=== PATIENT | male | born 1965 | race Caucasian/White ===

== ENCOUNTER 2023-04-20 16:24 | Inpatient (IN) | payer BC, SELFPAY ==
[2023-04-20] VITALS (11 sets, daily range): BP systolic 138–174; BP diastolic 82–100; BMI 31.9; BMI 29.9
--- NOTE | 2023-04-20 09:04 | ED.GENMED ---
History of Present Illness
General
Chief Complaint: Abdominal Symptoms
Source: patient
Exam Limitations: none
Time Seen by Provider: 04/20/23 08:48
Travel History
Have you had any contact with someone who has COVID-19?: No
Do you have any symptoms of coronavirus? Fever > 100 degrees, chills, cough, shortness of breath, sore throat, loss of taste or smell, muscle aches, or headache?: No
History of Present Illness
History of Present Illness:
58-year-old male presents with 3 days worth of nausea vomiting diarrhea. He had a recent spinal fusion. He has a chronic pain patient. He takes morphine gabapentin and OxyContin daily. He has not been able to take any of his blood pressure
medicine or pain medicine. He also notes a dizzy sensation. He cannot keep anything in or down. He has had loose stools at least 4 times in the past 3 hours. He persist to vomit. He notes mild diffuse abdominal pain. No other complaints at
this time
Past History
Past History
ED Past Medical History: Asthma, HTN, Other (Head injury with Vestibular problem), Other (Chronic low back pain, narcotic dependent) and Other (Kidney stones); Negative Hypercholesterolemia or NIDDM
ED Past Surgical History: Orthopedic (Left rotator cuff, Back surgery X 3) and Other (Stent, Left Orthroscopy, )
Social History
Tobacco: Non-smoker
Alcohol: None
Personal:
Living: with family
Employment: Disabled
Family History
Family History: Other (Noncontributory)
Phy Exam
Physical Exam
Physical Exam:
General: Well-appearing male no acute respiratory distress
HEENT: Normocephalic mucosa dry neck is supple
Heart: Regular rate and rhythm no murmurs
Lungs: Clear to auscultation bilaterally no wheezing
: Soft mildly diffusely tender no guarding or rebound normal bowel sounds
Extremities: No cyanosis or edema
Skin: Warm no rash
Course
Orders/Labs/Results
Orders:
Orders
04/20/23 08:58
STOOL [C difficile Antigen & Toxins] Urgent
JEAN-PAUL Source: Feces/Stool
Specimen Description:
Stool Culture Urgent
JEAN-PAUL Source: Feces/Stool
Specimen Description:
0.9% Sodium Chloride 1000 ml [Nss] 1,000 ml IV BOLUS
HYDROmorphone [Dilaudid] 1 mg IV NOW STA
Ondansetron Injectable [Zofran] 4 mg IV NOW STA
04/20/23 09:02
Complete Blood Count/With Diff Urgent
Comprehensive Metabolic Panel Urgent
Lipase Urgent
04/20/23 12:32
0.9% Sodium Chloride 1000 ml [Nss] 1,000 ml IV BOLUS
HYDROmorphone [Dilaudid] 1 mg IV NOW STA
diazePAM [Valium Injection] 5 mg IV NOW STA
04/20/23 14:53
Norovirus by PCR Urgent
JEAN-PAUL Source: Feces/Stool
Specimen Description:
Stool For WBC Urgent
JEAN-PAUL Source: Feces/Stool
Specimen Description:
04/20/23 14:57
CT Abd/pel Without Iv Or Oral Urgent
Comment:
Reason For Exam: nausea/vomiting/diarrhea
Abnormal Lab Results
04/20/23
09:02
WBC 12.1 H 10^3/uL
(4.8-10.8)
MCH 32.0 H pg
(27.0-31.0)
Abs Immat Gran (auto) 0.1 H 10^3/uL
(0-0.05)
Absolute Neuts (auto) 11.0 H 10^3/uL
(1.4-6.5)
Absolute Lymphs (auto) 0.8 L 10^3/uL
(1.2-3.4)
Neutrophils % 90.2 H %
(42.2-75.2)
Lymphocytes % 6.5 L %
(20.5-51.1)
Glucose 134 H mg/dl
(70-99)
04/20/23 09:02
04/20/23 09:02
Vital Signs
Initial and Last Documented VS:
Initial Vital Signs
Temp Pulse Resp BP Pulse Ox
98.1 F 69 16 174/100 96
04/20/23 08:16 04/20/23 08:16 04/20/23 08:16 04/20/23 08:16 04/20/23 08:16
Last Documented Vital Signs
Temp Pulse Resp BP Pulse Ox
98.1 F 76 20 141/89 99
04/20/23 08:16 04/20/23 14:30 04/20/23 14:30 04/20/23 14:00 04/20/23 14:30
MDM/Problems Addressed
Differential Diagnosis Includes:
Nausea,vomiting, diarrhea, abdominal pain. He also has dizziness which may be related to the volume depletion. He describes a positional dizziness. Will hydrate give Zofran pain medicine and check labs. Stool cultures pending
*Critical Care Note
Total Time (30-74mins, 75-104mins- exclusive of procedures): Not Applicable
Update Note
Update Note:
Patient reevaluated multiple times. Pain and nausea have not improved with multiple rounds of medication. Will have to admit to hospital for intractable nausea.
ED Attending Note
-
Portions of this chart may have been created with voice recognition software.� Occasional wrong word or��sound alike� substitutions may have occurred due to the inherent limitations of voice recognition software.
Discharge Plan
Departure
Patient Disposition: Admit
Date of Disposition: 04/20/23
Time of Disposition: 15:24
Presentation/result/management discussed w/ accepting MD/DO: Hospitalist
Discharge Problem:
Nausea & vomiting
Prescriptions:
No Action
olmesartan 40 mg Tablet
40 mg PO DAILY
oxycodone 10 mg Tablet
10 mg PO Q4H
morphine 15 mg tablet extended release
15 mg PO BID
cyclobenzaprine [Flexeril] 5 mg Tablet
5 mg PO HS
acetaminophen [Tylenol] 325 mg Tablet
650 mg PO BIDPRN PRN (Reason: migraines)
gabapentin 600 mg Tablet
600 mg PO QID
sennosides-docusate sodium [Colace 2-In-1] 8.6-50 mg Tablet
2 tab-cap PO HS
melatonin 5 mg Tablet
5 mg PO HS
Healthy Brain- All Day Focus
1 cap PO DAILY
Medical Marijuana
3 gummy PO DAILYPRN PRN (Reason: anxiety)
Referrals:
Brody Fernández DO [Family Provider] -
Interventions
Interventions:
*Risk Screen - Suicide Last Done: 04/20/23 09:03
*General Assessment Last Done: 04/20/23 09:03
*Neglect/Abuse Screening Last Done: 04/20/23 09:03
ED- Fall Risk Assessment Last Done: 04/20/23 09:03
*ED COVID-19 Vaccine History Last Done: 04/20/23 08:16
CR-Pnaptz-Zjzwelgrjh Assessment Last Done: 04/20/23 09:03
[2023-04-20] MEDS: NSS 1000 IV ×3 (09:13→18:40)
[2023-04-20] MEDS: ZOFRAN 4 MG IV ×2 (09:16→18:39)
[2023-04-20] MEDS: DILAUDID 1 MG IV ×2 (09:16→12:53)
[2023-04-20 09:25] LABS: % Basophils 0.2 % (0-2); % Eosinophils 0.1 % (0-6); % Immature Granulocytes 0.4 % (0-0.5); % Lymphocytes 6.5 % (20.5-51.1); % Monocytes 2.6 % (1.7-9.3); % Neutrophils 90.2 % (42.2-75.2); Absolute Immature Granulocytes 0.1 10^3/uL (0-0.05); Absolute Lymphocytes 0.8 10^3/uL (1.2-3.4); Absolute Monocytes 0.3 10^3/uL (0.1-0.6); Hematocrit 44.2 % (39.0-52.0); Hemoglobin 15.5 g/dL (13.0-18.0); Mean Corp Hgb Conc. 35.1 g/dL (33.0-37.0); Mean Corpuscular Volume 91.3 fL (80.0-94.0); Mean Platelet Volume 10.2 fL (7.4-10.4); Nucleated Red Blood Cells % 0 % (-); Platelet Count 326 10^3/uL (130-400); Red Blood Cell Count 4.84 10^6/uL (4.70-6.10); Red Cell Dist. Width 11.9 % (11.5-14.5); White Blood Cell Count 12.1 10^3/uL (4.8-10.8)
[2023-04-20 09:30] LABS: ALT (SGPT) 28 U/L (0-50); AST (SGOT) 23 U/L (17-59); Albumin 4.9 g/dl (3.5-5.0); Alkaline Phosphatase 96 U/L (38-126); Blood Urea Nitrogen 14 mg/dl (9-20); Calcium 10.2 mg/dl (8.4-10.2); Carbon Dioxide 26 mmol/L (22-30); Chloride 107 mmol/L (98-107); Estimated Creatinine Clearance 112 ml/min; Glucose 134 mg/dl (70-99); Lipase 42 U/L (23-300); Potassium 3.6 mmol/L (3.5-5.1); Sodium 140 mmol/L (135-145); Total Bilirubin 0.9 mg/dl (0.2-1.3); Total Protein 7.6 g/dl (6.3-8.2); eGFR > 60.00
[2023-04-20] MEDS: VALIUM INJECTION 5 MG IV (12:52)
--- NOTE | 2023-04-20 15:47 | HPS.HSE ---
Addendum entered and electronically signed by Catracho Paula MD 04/20/23 16:08:
Diarrhea for 3 days, then nausea and followed by vomiting
Has been having a lot of back issues, is unable to cook for himself and mostly does take out
Pt seen independently and agree with PA note
Lungs clear
CV reg
Abd soft, active BS, diffusely tender
Imp: probable infectious gastroenteritis
chronic back pain
P:check stool cx
CT scan of abd
empiric abx
IVF
Original Note:
Family Physician
-
Family Physician: Brody Fernández
Chief Complaint
-
Nausea/Vomiting/Diarrhea
History of Present Illness
Pt is a 58yo M w/ a PMH of HTN, and Chronic low back pain who is presenting to the ED c/o diarrhea x 3 days. Pt states he began experiencing diarrhea 3 days ago which occurred immediately after eating, he states he experienced 5-6 loose stools each
day. He denies blood in his stools and has not tried anything to improve his symptoms. He admits to nausea which began 2 days ago and began vomiting yesterday evening. He stated he was vomiting every 15 minutes. He states he has not eaten since the
vomiting began and reports dry heaving frequently today. He admits to diffuse abdominal tenderness which began with the onset of these symptoms and admits to dizziness which began yesterday morning. He notes that he has a history of TBI in 2008 and
states he always experiences a low level of dizziness but reports that his symptoms are worse than usual. He denies eating anything that tasted strange or he considered suspicious, and states that when he experiences nausea, he usually drinks a
Boost and the nausea resolves but this time he was unable to keep the drink down. He denies recent antibiotic use, and recent travel. He admits to marijuana use which he states he uses a 5mg edible once daily for anxiety and stress. He states he has
not used this since the vomiting began. He admits to chronic low back pain. He denies fever, chills, or sweats.
Medical History
Past Medical History
Past Medical History: Reports Other
Additional Past Medical History:
Chronic Back Pain
Chronic Opioid Dependence
History of TBI (remote)
Hypertension
Asthma
Past Surgical History: Reports Other
Additional Past Surgical History:
Lumbar Fusion x 2
Nerve Root Stimulator Implantation
Left Shoulder Surgery
Knee Arthroscopy
Social History
Tobacco: Non-smoker
Alcohol: Occasional
Drug: Marijuana (Edible marijuana daily for anxiety)
Family History
Family History: Not pertinent
Allergies / Home Medications
Allergies reflects when Allergies were last updated in [employer].
Home Medications with original date entered in [facility]
Allergy/Medication List:
Allergies
Allergy/AdvReac Type Severity Reaction Status Date / Time
No Known Allergies Allergy Verified 11/30/22 22:27
Home Medications
olmesartan 40 mg tablet 40 mg PO DAILY Blood Pressure 12/01/22
oxycodone 10 mg tablet 10 mg PO Q4H 12/01/22
morphine 15 mg tablet,extended release 15 mg PO BID Pain 12/02/22
Healthy Brain- All Day Focus 1 cap PO DAILY 04/20/23
Medical Marijuana 3 gummy PO DAILYPRN PRN anxiety 04/20/23
acetaminophen 325 mg tablet (Tylenol) 650 mg PO BIDPRN PRN migraines 04/20/23
cyclobenzaprine 5 mg tablet 5 mg PO HS 04/20/23
gabapentin 600 mg tablet 600 mg PO QID 04/20/23
melatonin 5 mg tablet 5 mg PO HS 04/20/23
sennosides 8.6 mg-docusate sodium 50 mg tablet (Colace 2-In-1) 2 tab-cap PO HS 04/20/23
Review of Systems
-
A 12 point ROS was completed and negative except as noted: Yes
Constitutional: Denies Fever or Chills
Respiratory: Denies Cough or Trouble Breathing
Cardiac: Denies Chest Pain or Palpitations
Abdomen/GI: Reports See HPI
Physical Exam
Vital Signs
Vital Signs
Temp Pulse Resp BP Pulse Ox
98.1 F 76 20 141/89 99
04/20/23 08:16 04/20/23 14:30 04/20/23 14:30 04/20/23 14:00 04/20/23 14:30
Physical Exam
General: Comfortable and Conversant
HEENT: NormoCephalic, Anicteric and Atraumatic
Respiratory: Clear and Non Labored Respirations
Cardiac: S1/S2 and Regular Rhythm
GI: Soft and Tender (Mild tenderness bilateral lower quadrants without rebound or guarding)
Musculoskeletal: No Clubbing, No Cyanosis and No Edema
Skin: Warm and Dry
Neuro: Awake, Alert, Oriented and Nonfocal/grossly intact
Laboratory Results
-
04/20/23 09:02
04/20/23 09:02
Laboratory Results
Total Bilirubin 0.9 mg/dl (0.2-1.3) 04/20/23 09:02
AST 23 U/L (17-59) 04/20/23 09:02
ALT 28 U/L (0-50) 04/20/23 09:02
Alkaline Phosphatase 96 U/L (38-126) 04/20/23 09:02
Lipase 42 U/L (23-300) 04/20/23 09:02
Data Reviewed
-
Lab Data: Labs Reviewed by me
Impression/Plan
-
Intractable Nausea/Vomiting/Diarrhea suspect Gastroenteritis possibly food-borne
-Check stool WBC, stool cultures, and norovirus
-Start Levaquin and Flagyl
-Allow clears liquids and Advance as tolerated
-Check Abd/Pelvis CT
Chronic Back Pain with Chronic Opioid Dependence
-Continue Morphine ER
-Continue Gabapentin and Flexeril
-Add Dilaudid IV for breakthrough pain until able to resume oral oxycodone
Essential Hypertension
-Continue olmesartan with hold parameters
DVT proph: SCDs
Code Status: Full Code
[2023-04-20] MEDS: FLAGYL 500 MG 100 IV (18:40)
[2023-04-20] MEDS: DILAUDID 0.5 MG IV (18:40)
[2023-04-20] MEDS: LEVAQUIN 100 IV (20:12)
[2023-04-20] MEDS: MS CONTIN (EXTENDED RELEASE) 15 MG PO (20:13)
[2023-04-20] MEDS: MELATONIN 5 MG PO (21:43)
[2023-04-20] MEDS: NEURONTIN 600 MG PO (21:43)
[2023-04-20] MEDS: FLEXERIL 5 MG PO (21:43)
[2023-04-21] MEDS: DILAUDID 0.5 MG IV ×5 (03:28→22:00)
[2023-04-21] MEDS: FLAGYL 500 MG 100 IV ×3 (03:28→18:58)
[2023-04-21 06:00] VITALS: BMI 31.6
[2023-04-21] MEDS: NSS 1000 IV ×2 (06:55→15:51)
[2023-04-21 07:00] VITALS: BP 152/94
[2023-04-21 07:09] LABS: Hematocrit 40.1 % (39.0-52.0); Hemoglobin 13.7 g/dL (13.0-18.0); Mean Corp Hgb Conc. 34.2 g/dL (33.0-37.0); Mean Corpuscular Hgb 32.2 pg (27.0-31.0); Mean Corpuscular Volume 94.4 fL (80.0-94.0); Mean Platelet Volume 10.6 fL (7.4-10.4); Platelet Count 274 10^3/uL (130-400); Red Blood Cell Count 4.25 10^6/uL (4.70-6.10); Red Cell Dist. Width 12.1 % (11.5-14.5); White Blood Cell Count 11.9 10^3/uL (4.8-10.8)
[2023-04-21 07:37] LABS: Blood Urea Nitrogen 18 mg/dl (9-20); Calcium 9.4 mg/dl (8.4-10.2); Carbon Dioxide 24 mmol/L (22-30); Chloride 104 mmol/L (98-107); Estimated Creatinine Clearance > 125 ml/min; Glucose 85 mg/dl (70-99); Magnesium 2.3 mg/dl (1.6-2.3); Potassium 3.5 mmol/L (3.5-5.1); Sodium 140 mmol/L (135-145); eGFR > 60.00
[2023-04-21] MEDS: NEURONTIN 600 MG PO ×4 (07:50→21:54)
[2023-04-21] MEDS: BENICAR 40 MG PO (07:50)
[2023-04-21] MEDS: PROTONIX IV 40 MG IV (07:50)
[2023-04-21] MEDS: MS CONTIN (EXTENDED RELEASE) 15 MG PO ×2 (07:50→19:46)
[2023-04-21] MEDS: NSS (PRESERVATIVE FREE) 10 ML IV (07:50)
[2023-04-21] MEDS: ZOFRAN 4 MG IV (07:58)
--- NOTE | 2023-04-21 08:28 | CON.GI ---
Consultation
-
Date/Time Consultation Requested: 04/20/2023
Date/Time Consultation Performed: 04/21/2023
Requesting Provider:
Performing Provider: Dr. Griffin
Reason for Consultation: Nausea, vomiting and diarrhea
Medical History
Chief Complaint / HPI
Chief Complaint: Nausea, vomiting and diarrhea
History of Present Illness:
58-year-old male with a past medical history significant for chronic back pain with multiple back surgeries,spinal stimulator, chronic opioid use secondary to chronic pain, hypertension, asthma, remote history of TBI, who presented to the emergency
room with complaints of nausea, vomiting and diarrhea -nausea and vomiting for 6 hours with bilious vomiting and diarrhea for the last couple of days. Reports chronic intermittent nausea and vomiting episodes, he does have heartburn on a regular
basis, takes Tums, does not take PPI, no trouble swallowing. Normal bowel movement pattern is 1 formed stool a day, no pushing and straining and good evacuation and as per patient takes a stool softener and a laxative pill daily. No recent eating
out or new medications. 6 weeks ago he had another back procedure and has been in a lot of pain. Previous admissions in April 2022 in November 2022 with similar episodes. No infectious etiology noted at that time and he eventually did feel
better. He currently takes morphine 15 mg twice a day, oxycodone 10 mg every 4 hours, also on medical marijuana.� Since last April, no weight loss and in fact he did gain weight. He denies any melena or hematochezia-some wipe type bleeding on
occasion.� He denies any hematemesis.� � He denies any overt abdominal pain, chest pain, or shortness of breath.� Last visit in November 2022, his drug screen was positive for methamphetamines, benzodiazepines, cocaine, and marijuana, but Repeat
testing 2 days later was negative for methamphetamine, benzodiazepine and cocaine, he denies using any illicit drugs and he reports that because of the test test, he had had disagreement with his pain management doctor and was very upset about
that.� He denies any significant alcohol use.� He denies having any EGD previously.� His last colonoscopy was done in [address] Haro with findings of cecal tubular adenoma that was removed, diverticulosis, and nonbleeding internal hemorrhoids
.� He underwent CT imaging of the abdomen and pelvis which showed no CT findings for acute abdominal or pelvic disease.� Noted nonurgent findings of mild pancreatic fatty infiltration .� Pertinent lab findings on admission included WBC 12.1, normal
LFTs and lipase.� He has had no further stools since admission.
Past Medical History
Past Medical History: Other (Asthma, HTN and Other (Chronic back pain on chronic opioids, remote history of TBI))
Past Surgical History: Other (Orthopedic (Multiple lower lumbar spinal fusions, left shoulder surgery, knee arthroscopy) )
Social History
Tobacco: Non-Smoker
Alcohol: None
Family History
Family History: Reviewed & Not Pertinent
Allergies / Home Medications
Allergy/AdvReac Type Severity Reaction Status Date / Time
No Known Allergies Allergy Verified 11/30/22 22:27
Medication Instructions Recorded
olmesartan 40 mg tablet 40 mg PO DAILY Blood Pressure 12/01/22
oxycodone 10 mg tablet 10 mg PO Q4H 12/01/22
morphine 15 mg tablet,extended 15 mg PO BID Pain 12/02/22
release
Healthy Brain- All Day Focus 1 cap PO DAILY 04/20/23
Medical Marijuana 3 gummy PO DAILYPRN PRN anxiety 04/20/23
acetaminophen 325 mg tablet 650 mg PO BIDPRN PRN migraines 04/20/23
(Tylenol)
cyclobenzaprine 5 mg tablet 5 mg PO HS 04/20/23
gabapentin 600 mg tablet 600 mg PO QID 04/20/23
melatonin 5 mg tablet 5 mg PO HS 04/20/23
sennosides 8.6 mg-docusate sodium 2 tab-cap PO HS 04/20/23
50 mg tablet (Colace 2-In-1)
Review of Systems
-
All other systems: A 12 pt ROS was Negative except as stated above in HPI
Musculoskeletal: Reports Joint Pain (Back pain)
Vital Signs
Temp Pulse Resp BP Pulse Ox
98.2 F 64 16 160/89 100
04/20/23 23:00 04/20/23 23:00 04/20/23 23:00 04/20/23 23:00 04/20/23 23:00
Physical Exam
Exam
General: Well Developed and Well Nourished
Respiratory: Clear
Cardiac: S1/S2 and Regular Rhythm
GI: Soft, Non Tender and Normal Bowel Sounds
Neuro: AO x 3
Results
WBC 11.9 10^3/uL (4.8-10.8) H 04/21/23 06:02
Hgb 13.7 g/dL (13.0-18.0) 04/21/23 06:02
Hct 40.1 % (39.0-52.0) 04/21/23 06:02
MCV 94.4 fL (80.0-94.0) H 04/21/23 06:02
Plt Count 274 10^3/uL (130-400) 04/21/23 06:02
Absolute Neuts (auto) 11.0 10^3/uL (1.4-6.5) H 04/20/23 09:02
Sodium 140 mmol/L (135-145) 04/21/23 06:02
Potassium 3.5 mmol/L (3.5-5.1) 04/21/23 06:02
Chloride 104 mmol/L (98-107) 04/21/23 06:02
Carbon Dioxide 24 mmol/L (22-30) 04/21/23 06:02
BUN 18 mg/dl (9-20) 04/21/23 06:02
Creatinine 0.7 mg/dL (0.7-1.3) 04/21/23 06:02
Calcium 9.4 mg/dl (8.4-10.2) 04/21/23 06:02
Total Bilirubin 0.9 mg/dl (0.2-1.3) 04/20/23 09:02
AST 23 U/L (17-59) 04/20/23 09:02
ALT 28 U/L (0-50) 04/20/23 09:02
Alkaline Phosphatase 96 U/L (38-126) 04/20/23 09:02
Lipase 42 U/L (23-300) 04/20/23 09:02
Diagnostic Image Results:
Prior GI Procedures:
EGD:
Colonoscopy: �2019, Dr. Haro; 1 TA polyp cecum, 1 HP polyp, diverticulosis, IH
Assessment / Plan
-
58-year-old male with a past medical history significant for chronic back pain with multiple back surgeries,spinal stimulator , chronic opioid use secondary to chronic pain, hypertension, asthma, remote history of TBI, who presented with intractable
nausea, vomiting, with loss of appetite and weight loss.� No electrolyte abnormalities. No weight loss. On chronic opioids, with intermittent but intractable nausea with vomiting, couple of admissions with similar complaints.� CT imaging of the
abdomen pelvis with IV contrast only showed no acute abdominal or pelvic findings.� No prior EGD.� November 2022 drug screen positive for cocaine, marijuana, and methamphetamines but repeat testing 2 days after was negative and denies any illicit
drugs.� No NSAID use.
Problem list:
-intermittent Nausea/vomiting
-acute on chronic diarrhea
-chronic opioid induced constipation
-chronic back pain on chronic opioids
-daily medical marijuana use
-HTN
-asthma
-hx TBI
-Fatty pancreas
Recommendations:
-Etiology of intermittent nausea and vomiting likely secondary to component of opioid-induced gastroparesis with chronic narcotic use versus effects from marijuana cyclical vomiting with daily marijuana use versus less likely a viral gastroenteritis
versus other.
---CT imaging showing no acute findings
No anemia, GI bleeding
At this time, will continue clear liquid diet and advance as tolerated
Is currently on Protonix 40 mg IV daily in the hospital, I will change it to IV twice daily and reinforced to the patient that he needs to be on a PPI twice a day to prevent any esophagitis related to intermittent nausea and vomiting episodes.
Strongly recommended limiting narcotic use and also explained regarding cyclical vomiting related to marijuana.
He needs to be on a low residue and low fat diet as he may have a competent of gastroparesis related to opiate use.
If no further nausea and vomiting episodes, will advance diet as tolerated
-Diarrhea, currently seems to be subsiding as well
Stool white cells negative, norovirus negative, C. difficile antigen positive but toxin negative. Cultures pending.
Will follow
-History of chronic constipation on laxatives with good relief of symptoms
At this time does not need any other additional agents
-
-
Thank you for consultation and allowing me to participate in the patient's care. Please call the flight control specialist GI physician during the after hours with any questions or concerns.
--- NOTE | 2023-04-21 11:14 | W.PN.HOSP.TC ---
Today's Communication/Plan
-
await stool studies, but if negative consider alternative diagnosis, that being opioid induced bowel dysfunction with secondary vomiting and intermittent diarrhea
consider Relistor, await input from GI
Assessment / Plan
Assessment / Plan
Intractable Nausea/Vomiting/Diarrhea suspect Gastroenteritis possibly food-borne
with neg CT scan await stools for WBC. Somewhat atypical presentation, but could this be opioid induced bowel dysfunction
-Check stool WBC-pending, stool cultures-pending, and norovirus - neg
-Start Levaquin and Flagyl
-Allow clears liquids and Advance as tolerated
-Abd/Pelvis CT: No acute pathology of the abdomen or pelvis.
Nonobstructing left renal stones. New
Mild pancreatic fatty infiltration. Stable
Tiny pericardial effusion versus pericardial thickening. Stable
Mild diverticulosis. Stable
Simple left renal cyst. Stable.
Postsurgical change of the spine and sacrum. Stable
Chronic Back Pain with Chronic Opioid Dependence
-Continue Morphine ER
-Continue Gabapentin and Flexeril
-Add Dilaudid IV for breakthrough pain until able to resume oral oxycodone
Essential Hypertension
-Continue olmesartan with hold parameters
DVT proph: SCDs
Code Status: Full Code
Anticipated Discharge: 24 - 48 hours
Subjective/Interval History
-
Date of Service: April 21, 2023
Awake, alert
Objective Data
-
Labs:
Laboratory Results
04/21/23
06:02
WBC 11.9 H
Hgb 13.7
Hct 40.1
Plt Count 274
Sodium 140
Potassium 3.5
Chloride 104
Carbon Dioxide 24
BUN 18
Creatinine 0.7
Glucose 85
Calcium 9.4
Vital Signs:
Vital Signs
Temp Pulse Resp BP Pulse Ox
98.3 F 74 18 152/94 100
04/21/23 07:00 04/21/23 07:00 04/21/23 07:00 04/21/23 07:00 04/21/23 07:00
I&O
04/20/23 04/21/23 04/22/23
06:59 06:59 06:59
Intake Total 840 / 840
Balance 840 / 840
Review of Systems
-
History Source: Patient
Abdomen/GI: Reports Abdominal Pain (controlled with narcotics), Nausea (nausea this morning), Vomiting (none today), Diarrhea (had 4 episodes yesterday, since arriving in hospital, none today) and Other (bowels were churning with the liquids,
passing flatus)
Physical Exam
-
General: Well Developed, Well Nourished, No Apparent Distress and Pain
HEENT: Normocephalic and Atraumatic
Respiratory: Clear to Auscultation and Non Labored Respirations; Negative Accessory Resp Muscle Use
Cardiac: Regular Rhythm and S1/S2
Breast: Deferred by me
GI: Soft, Nontender, Nondistended and Normal Bowel Sounds
Rectal: Deferred by Provider
Genito-urinary: Deferred by me
Musculoskeletal: No Clubbing, No Cyanosis and No Edema
Skin: Warm
Neuro: Awake, Alert, Oriented and AO x 3
Psych: Calm and Intact Judgement/Insight
--- NOTE | 2023-04-21 14:46 | CM ---
Patient seen at bedside. Patient states that he lives with a girlfriend that he has recently broken up with and he plans to move shortly after discharge home. patient has son half time. Patient has a walker, shower chair, lift chair and walker at
home. Patient PCP is Dr. Fernández and he uses the [facility] in [place] on [address]. Patient stated that he was driving. Patient indicated that he would be open to VN if recommended but was uncertain if he would need any further supports at this
time. CM will continue to follow for discharge planning needs.
Plan; home with VN vs home with no needs; watch therapy recommendations
[2023-04-21 15:00] VITALS: BP 156/96
[2023-04-21] MEDS: LEVAQUIN 100 IV (17:47)
[2023-04-21] MEDS: FLEXERIL 5 MG PO (21:53)
[2023-04-21] MEDS: MELATONIN 5 MG PO (21:54)
[2023-04-21 23:20] VITALS: BP 146/100
[2023-04-22] MEDS: FLAGYL 500 MG 100 IV ×3 (02:57→18:33)
[2023-04-22] MEDS: NSS 1000 IV (02:57)
[2023-04-22 07:00] VITALS: BP 169/100
[2023-04-22] MEDS: DILAUDID 0.5 MG IV ×5 (07:06→22:39)
--- NOTE | 2023-04-22 08:05 | W.PN.HOSP.TC ---
Today's Communication/Plan
-
Advance diet
Better control of blood pressure
Check orthostatic vital signs, echo, troponins, EKG
Assessment / Plan
Assessment / Plan
Physical Exam
General: Well Developed, Well Nourished, No Apparent Distress and Pain
HEENT: Normocephalic and Atraumatic
Respiratory: Clear to Auscultation and Non Labored Respirations
Cardiac: Regular Rhythm and S1/S2
GI: Soft, Nontender, Nondistended and Normal Bowel Sounds
Musculoskeletal: No Cyanosis and No Edema
Skin: Warm. Dry.
Neuro: Awake, Alert, Oriented and AAO x 3
Psych: Calm and Intact Judgement/Insight
Assessment/Plan
Intractable Nausea/Vomiting/Diarrhea suspect Gastroenteritis possibly food-borne vs. Opioid-Induced gastroparesis with chronic narcotic use versus effects from marijuana cyclical vomiting with daily marijuana use
with neg CT scan await stools for WBC. Somewhat atypical presentation, but could this be opioid induced bowel dysfunction
-Stool WBC-negative, stool cultures-pending, and norovirus - neg, C. difficile antigen positive but toxin negative
-Start Levaquin and Flagyl
-Allow clears liquids and Advance as tolerated
-Abd/Pelvis CT: No acute pathology of the abdomen or pelvis.
Nonobstructing left renal stones. New
Mild pancreatic fatty infiltration. Stable
Tiny pericardial effusion versus pericardial thickening. Stable
Mild diverticulosis. Stable
Simple left renal cyst. Stable.
Postsurgical change of the spine and sacrum. Stable
-Limit narcotic and Marijuana use
-Patient needs to be on a low residue and low fat diet
-Continue Protonic 40 mg PO twice a day
Chest Thumping Sensation
-CXR, troponins, EKG, Echo
-Patient says it could be related to high blood pressures: added Amlodipine (see below)
Chronic Dizziness Associated with History of Traumatic Brain Injury
-Stable, no new dizziness characteristics
-Check orthostatic vital signs
Chronic Back Pain with Chronic Opioid Dependence
-Continue Morphine ER
-Continue Gabapentin and Flexeril
-Add Dilaudid IV for breakthrough pain until able to resume oral oxycodone
Essential Hypertension
-Continue olmesartan with hold parameters
-Added (on April 22, 2023) Amlodipine due to high evening and morning blood pressures
DVT proph: SCDs
Code Status: Full Code
Anticipated Discharge: 24 - 48 hours
Subjective/Interval History
-
Date of Service: April 22, 2023
Patient was seen and examined. He reported that he does not have any more diarrhea. Per nurse patient reported dizziness that has been chronic. He reported thumping in his chest which he thinks is from his elevated blood pressure.
Objective Data
-
Vital Signs:
Vital Signs
Temp Pulse Resp BP Pulse Ox
98.1 F 76 16 146/100 97
04/21/23 23:20 04/21/23 23:20 04/21/23 23:20 04/21/23 23:20 04/21/23 23:20
I&O
04/21/23 04/22/23 04/23/23
06:59 06:59 06:59
Intake Total 840 / 840 1230 / 1230 200 / 200
Output Total 750 / 750 1200 / 1200
Balance 840 / 840 480 / 480 -1000 / -1000
[2023-04-22] MEDS: NEURONTIN 600 MG PO ×4 (09:37→22:15)
[2023-04-22] MEDS: BENICAR 40 MG PO (09:37)
[2023-04-22] MEDS: NSS (PRESERVATIVE FREE) 10 ML IV (09:38)
[2023-04-22] MEDS: MS CONTIN (EXTENDED RELEASE) 15 MG PO ×2 (09:38→19:36)
[2023-04-22] MEDS: PROTONIX IV 40 MG IV (09:38)
[2023-04-22 14:00] VITALS: BP 157/103
--- NOTE | 2023-04-22 14:00 | PTCARENOTE ---
Patient c/o dizziness and a thumping in his chest. Patient states, 'I can feel a thumping in my chest and I would like my Blood pressure checked. This thumping usually means my blood pressure is high.' BP 157/103 HR 75 96%RA. Patient describes
dizziness as chronic, but it gets worse when he is not feeling well. Physician made aware, order for EKG, ECHO, TROP, CXR obtained. Patient updated with plan of care.
--- NOTE | 2023-04-22 14:40 | W.PN.GI.CBS2 ---
Today's Communication / Plan
-
Recommendations:
-Etiology of intermittent nausea and vomiting likely secondary to component of opioid-induced gastroparesis with chronic narcotic use versus effects from marijuana cyclical vomiting with daily marijuana use versus less likely a viral gastroenteritis
versus other.
---CT imaging showing no acute findings
No anemia, GI bleeding
Nausea seems to be much improved and no vomiting, He needs to be on a low residue and low fat diet as he may have a competent of gastroparesis related to opiate use.
Continue Protonix 40 mg twice a day
Strongly recommended limiting narcotic use and also explained regarding cyclical vomiting related to marijuana.
-Diarrhea, currently seems to be subsiding as well
Stool white cells negative, norovirus negative, C. difficile antigen positive but toxin negative. Cultures pending.
No further diarrhea
-History of chronic constipation on laxatives with good relief of symptoms
At this time does not need any other additional agents
Assessment / Plan
-
58-year-old male with a past medical history significant for chronic back pain with multiple back surgeries,spinal stimulator , chronic opioid use secondary to chronic pain, hypertension, asthma, remote history of TBI, who presented with intractable
nausea, vomiting, with loss of appetite and weight loss.� No electrolyte abnormalities. No weight loss. On chronic opioids, with intermittent but intractable nausea with vomiting, couple of admissions with similar complaints.� CT imaging of the
abdomen pelvis with IV contrast only showed no acute abdominal or pelvic findings.� No prior EGD.� November 2022 drug screen positive for cocaine, marijuana, and methamphetamines but repeat testing 2 days after was negative and denies any illicit
drugs.� No NSAID use.
Problem list:
-intermittent Nausea/vomiting
-acute on chronic diarrhea
-chronic opioid induced constipation
-chronic back pain on chronic opioids
-daily medical marijuana use
-HTN
-asthma
-hx TBI
-Fatty pancreas
Recommendations:
-Etiology of intermittent nausea and vomiting likely secondary to component of opioid-induced gastroparesis with chronic narcotic use versus effects from marijuana cyclical vomiting with daily marijuana use versus less likely a viral gastroenteritis
versus other.
---CT imaging showing no acute findings
No anemia, GI bleeding
Nausea seems to be much improved and no vomiting, He needs to be on a low residue and low fat diet as he may have a competent of gastroparesis related to opiate use.
Continue Protonix 40 mg twice a day
Strongly recommended limiting narcotic use and also explained regarding cyclical vomiting related to marijuana.
-Diarrhea, currently seems to be subsiding as well
Stool white cells negative, norovirus negative, C. difficile antigen positive but toxin negative. Cultures pending.
No further diarrhea
-History of chronic constipation on laxatives with good relief of symptoms
At this time does not need any other additional agents
Subjective
Subjective
Date of Service: April 22, 2023
Patient has some nausea but no vomiting. No further diarrhea
Objective
Data Reviewed
Laboratory Data:
Laboratory Results
04/21/23 06:02
04/21/23 06:02
Laboratory Results
Magnesium 2.3 mg/dl (1.6-2.3) 04/21/23 06:02
Total Bilirubin 0.9 mg/dl (0.2-1.3) 04/20/23 09:02
AST 23 U/L (17-59) 04/20/23 09:02
ALT 28 U/L (0-50) 04/20/23 09:02
Alkaline Phosphatase 96 U/L (38-126) 04/20/23 09:02
Lipase 42 U/L (23-300) 04/20/23 09:02
Vital Signs and I&O:
Vital Signs
Temp Pulse Resp BP Pulse Ox
98.2 F 75 18 157/103 96
04/22/23 07:00 04/22/23 14:00 04/22/23 07:00 04/22/23 14:00 04/22/23 14:00
I&O
04/21/23 04/22/23 04/23/23
06:59 06:59 06:59
Intake Total 840 / 840 1230 / 1230 200 / 200
Output Total 750 / 750 1200 / 1200
Balance 840 / 840 480 / 480 -1000 / -1000
Physical Exam
Physical Exam
GI: Soft, Non Distended and Non Tender
[2023-04-22 15:00] VITALS: BP 154/94
[2023-04-22] MEDS: ZOFRAN 4 MG IV (15:42)
--- NOTE | 2023-04-22 15:50 | CM ---
Chart reviewed
Pt seen by GI today
Advancing diet
PT recs - tbd
CM will follow for home needs
Anticipate home to previous setting - needs tbd
[2023-04-22 16:45] LABS: Troponin I < 0.012 ng/ml
[2023-04-22] MEDS: LEVAQUIN 100 IV (17:23)
[2023-04-22] MEDS: MELATONIN 5 MG PO (22:15)
[2023-04-22] MEDS: FLEXERIL 5 MG PO (22:15)
[2023-04-22] MEDS: NORVASC 5 MG PO (22:18)
[2023-04-22 22:44] LABS: Troponin I < 0.012 ng/ml
[2023-04-22 23:21] VITALS: BP 130/97; BP 136/107; BP 139/94; PULSE 78; PULSE 80; PULSE 88
[2023-04-23] MEDS: DILAUDID 0.5 MG IV ×5 (02:09→17:29)
[2023-04-23] MEDS: FLAGYL 500 MG 100 IV ×2 (02:09→11:45)
[2023-04-23] MEDS: FLUSH (NSS) 1 FLUSH IV (02:10)
[2023-04-23 02:16] LABS: % Basophils 0.7 % (0-2); % Eosinophils 1.4 % (0-6); % Immature Granulocytes 0.3 % (0-0.5); % Lymphocytes 23.8 % (20.5-51.1); % Monocytes 7.3 % (1.7-9.3); % Neutrophils 66.5 % (42.2-75.2); Absolute Basophils 0.1 10^3/uL (0-0.2); Absolute Eosinophils 0.1 10^3/uL (0-0.7); Absolute Lymphocytes 2.2 10^3/uL (1.2-3.4); Absolute Monocytes 0.7 10^3/uL (0.1-0.6); Absolute Neutrophils 6.1 10^3/uL (1.4-6.5); Hematocrit 36.1 % (39.0-52.0); Hemoglobin 12.9 g/dL (13.0-18.0); Mean Corp Hgb Conc. 35.7 g/dL (33.0-37.0); Mean Corpuscular Hgb 32.2 pg (27.0-31.0); Mean Platelet Volume 9.7 fL (7.4-10.4); Nucleated Red Blood Cells % 0 % (-); Platelet Count 246 10^3/uL (130-400); Red Blood Cell Count 4.01 10^6/uL (4.70-6.10); White Blood Cell Count 9.1 10^3/uL (4.8-10.8)
[2023-04-23 02:35] LABS: ALT (SGPT) 21 U/L (0-50); AST (SGOT) 18 U/L (17-59); Albumin 3.2 g/dl (3.5-5.0); Alkaline Phosphatase 52 U/L (38-126); Blood Urea Nitrogen 8 mg/dl (9-20); Carbon Dioxide 28 mmol/L (22-30); Chloride 105 mmol/L (98-107); Estimated Creatinine Clearance 111 ml/min; Glucose 98 mg/dl (70-99); Phosphorus 4.6 mg/dl (2.5-4.5); Potassium 3.8 mmol/L (3.5-5.1); Sodium 139 mmol/L (135-145); Total Bilirubin 0.9 mg/dl (0.2-1.3); Total Protein 5.3 g/dl (6.3-8.2); eGFR > 60.00
[2023-04-23 02:41] LABS: Troponin I < 0.012 ng/ml
[2023-04-23 07:00] VITALS: BP 148/97
[2023-04-23 08:36] LABS: Troponin I < 0.012 ng/ml
[2023-04-23] MEDS: NSS (PRESERVATIVE FREE) 10 ML IV (09:17)
[2023-04-23] MEDS: PROTONIX IV 40 MG IV (09:17)
[2023-04-23] MEDS: NEURONTIN 600 MG PO ×3 (09:17→17:30)
[2023-04-23] MEDS: MS CONTIN (EXTENDED RELEASE) 15 MG PO (09:18)
[2023-04-23] MEDS: BENICAR 40 MG PO (09:23)
--- NOTE | 2023-04-23 13:23 | W.PN.HOSP.TC ---
Today's Communication/Plan
-
Discharge today
Assessment / Plan
Assessment / Plan
Physical Exam
General: Well Developed, Well Nourished, No Apparent Distress and Pain
HEENT: Normocephalic and Atraumatic
Respiratory: Clear to Auscultation and Non Labored Respirations
Cardiac: Regular Rhythm and S1/S2
GI: Soft, Nontender, Nondistended and Normal Bowel Sounds
Musculoskeletal: No Cyanosis and No Edema
Skin: Warm. Dry.
Neuro: Awake, Alert, Oriented and AAO x 3
Psych: Calm and Intact Judgement/Insight

Echocardiogram on 04/22/23 as per welding setter's report:
'CONCLUSIONS
Mild concentric left ventricular hypertrophy. Normal left ventricular chamber
size. Normal left ventricular systolic function. Left ventricular ejection
fraction is 54%.
Mild mitral regurgitation.
Mild tricuspid regurgitation.
No prior study available for comparison.'

Assessment/Plan
Intractable Nausea/Vomiting/Diarrhea suspect Gastroenteritis possibly food-borne vs. Opioid-Induced gastroparesis with chronic narcotic use versus effects from marijuana cyclical vomiting with daily marijuana use
with neg CT scan await stools for WBC. Somewhat atypical presentation, but could this be opioid induced bowel dysfunction
-Stool WBC-negative, stool cultures-pending, and norovirus - neg, C. difficile antigen positive but toxin negative
-Start Levaquin and Flagyl
-Allow clears liquids and Advance as tolerated
-Abd/Pelvis CT: No acute pathology of the abdomen or pelvis.
Nonobstructing left renal stones. New
Mild pancreatic fatty infiltration. Stable
Tiny pericardial effusion versus pericardial thickening. Stable (but no pericardial effusion seen on echocardiogram)
Mild diverticulosis. Stable
Simple left renal cyst. Stable.
Postsurgical change of the spine and sacrum. Stable
-Limit narcotic and Marijuana use
-Patient needs to be on a low residue and low fat diet
-Continue Protonic 40 mg PO twice a day
Chest Thumping Sensation
-CXR (okay), troponins (negative), EKG (okay), Echo (results are above)
-Patient says it could be related to high blood pressures: added Amlodipine (see below)
Chronic Dizziness Associated with History of Traumatic Brain Injury
-Stable, no new dizziness characteristics
Chronic Back Pain with Chronic Opioid Dependence
-Continue Morphine ER
-Continue Gabapentin and Flexeril
Essential Hypertension
-Continue olmesartan with hold parameters
-Added (on April 22, 2023) Amlodipine due to high evening and morning blood pressures
DVT prophylaxis: SCDs
Code Status: Full Code
More than 30 minutes spent in discharge including
Final examination of the patient
Summarizing hospital stay
Instructions for continuing care to all relevant caregivers
Preparation of discharge records, prescriptions, and referral forms
Total time spent (in minutes): 36
Anticipated Discharge: Today
Subjective/Interval History
-
Date of Service: April 23, 2023
Patient was seen and examined. He reported no new symptoms, and is okay with going home today.
Objective Data
-
Labs:
Laboratory Results
04/23/23
02:09
WBC 9.1
Hgb 12.9 L
Hct 36.1 L
Plt Count 246
Sodium 139
Potassium 3.8
Chloride 105
Carbon Dioxide 28
BUN 8 L
Creatinine 0.8
Glucose 98
Calcium 9.0
Total Bilirubin 0.9
AST 18
ALT 21
Alkaline Phosphatase 52
Vital Signs:
Vital Signs
Temp Pulse Resp BP Pulse Ox
98.0 F 77 15 148/97 98
04/23/23 07:00 04/23/23 07:00 04/23/23 07:00 04/23/23 07:00 04/23/23 07:00
I&O
04/22/23 04/23/23 04/24/23
06:59 06:59 06:59
Intake Total 1230 / 1230 2220 / 2220
Output Total 750 / 750 3500 / 3500
Balance 480 / 480 -1280 / -1280
--- NOTE | 2023-04-23 13:25 | W.PN.GI.CBS2 ---
Addendum entered and electronically signed by Reno Gonzalez MD 04/23/23 14:50:
I saw and examined the patient.
The PA's note was reviewed and I agree with the note.
Comment:
Diarrhea improving, tolerating diet. Ok to d/c.
Original Note:
Today's Communication / Plan
-
-Etiology of intermittent nausea and vomiting likely secondary to component of opioid-induced gastroparesis with chronic narcotic use versus effects from marijuana cyclical vomiting with daily marijuana use versus less likely a viral gastroenteritis
versus stress vs other
discussed multiple causes of symptoms meds, Marijuana vs stress
with recurrent episode sent message for OP follow up
discussed at length need for stress reduction continue follow up with psych due tomorrow OP
cont PPI
Strongly recommended limiting narcotic use and also explained regarding cyclical vomiting related to marijuana
-Diarrhea improved discussed keep bowels moving to prevent constipation with narcotic use continue laxative regiment
Stool white cells negative, norovirus negative, C. difficile antigen positive but toxin negative. Culture neg
stable from GI for discharge as tolerating diet, TT sent to Dr. Marks
Assessment / Plan
-
58-year-old male with a past medical history significant for chronic back pain with multiple back surgeries,spinal stimulator , chronic opioid use secondary to chronic pain, hypertension, asthma, remote history of TBI, who presented with intractable
nausea, vomiting, with loss of appetite and weight loss.� No electrolyte abnormalities. No weight loss. On chronic opioids, with intermittent but intractable nausea with vomiting, couple of admissions with similar complaints.� CT imaging of the
abdomen pelvis with IV contrast only showed no acute abdominal or pelvic findings.� No prior EGD.� November 2022 drug screen positive for cocaine, marijuana, and methamphetamines but repeat testing 2 days after was negative and denies any illicit
drugs.� No NSAID use. Pt also relates increase stress with divorce and break up with girlfriend.
Problem list:
-intermittent Nausea/vomiting
-acute on chronic diarrhea
-chronic opioid induced constipation
-chronic back pain on chronic opioids
-daily medical marijuana use
-HTN
-asthma
-hx TBI
-Fatty pancreas
-increased stress
Recommendations:
-Etiology of intermittent nausea and vomiting likely secondary to component of opioid-induced gastroparesis with chronic narcotic use versus effects from marijuana cyclical vomiting with daily marijuana use versus less likely a viral gastroenteritis
versus stress vs other
discussed multiple causes of symptoms meds, Marijuana vs stress
with recurrent episode sent message for OP follow up
discussed at length need for stress reduction continue follow up with psych due tomorrow OP
cont PPI
Strongly recommended limiting narcotic use and also explained regarding cyclical vomiting related to marijuana
-Diarrhea improved discussed keep bowels moving to prevent constipation with narcotic use continue laxative regiment
Stool white cells negative, norovirus negative, C. difficile antigen positive but toxin negative. Culture neg
stable from GI for discharge as tolerating diet, TT sent to Dr. Marks
Subjective
Subjective
Date of Service: April 23, 2023
low residue diet, no stools pt feeling better for discharge today
Objective
Data Reviewed
Laboratory Data:
Laboratory Results
04/23/23 02:09
04/23/23 02:09
Laboratory Results
Phosphorus 4.6 mg/dl (2.5-4.5) H 04/23/23 02:09
Magnesium 2.0 mg/dl (1.6-2.3) 04/23/23 02:09
Total Bilirubin 0.9 mg/dl (0.2-1.3) 04/23/23 02:09
AST 18 U/L (17-59) 04/23/23 02:09
ALT 21 U/L (0-50) 04/23/23 02:09
Alkaline Phosphatase 52 U/L (38-126) 04/23/23 02:09
Lipase 42 U/L (23-300) 04/20/23 09:02
Vital Signs and I&O:
Vital Signs
Temp Pulse Resp BP Pulse Ox
98.0 F 77 15 148/97 98
04/23/23 07:00 04/23/23 07:00 04/23/23 07:00 04/23/23 07:00 04/23/23 07:00
I&O
04/22/23 04/23/23 04/24/23
06:59 06:59 06:59
Intake Total 1230 / 1230 2220 / 2220
Output Total 750 / 750 3500 / 3500
Balance 480 / 480 -1280 / -1280
Physical Exam
Physical Exam
HEENT: Anicteric and Moist mucous membranes
Cardiology: Normal Sinus Rhythm
Pulmonary: Clear
GI: Soft, Non Distended and Non Tender
Extremities: No Edema
Neuro: Non Focal
[2023-04-23 14:53] LABS: Troponin I < 0.012 ng/ml
[2023-04-23 15:38] VITALS: BP 142/100
--- NOTE | 2023-04-23 15:55 | W.DS.TRANS ---
DC Summary - Splitter [facility]ender
-
Discharge Instructions:
Discharge Diagnosis/Procedures Intractable Nausea/Vomiting/Diarrhea suspected
secondary to Opioid-Induced gastroparesis with
chronic narcotic use versus effects from
cyclical vomiting with daily marijuana use
versus less likely a viral gastroenteritis
versus stress vs other
Chest Thumping Sensation - resolved
Chronic Dizziness Associated with History of
Traumatic Brain Injury
Chronic Back Pain with Chronic Opioid Dependence
Essential Hypertension
Mild concentric left ventricular hypertrophy
Mild mitral regurgitation
Mild tricuspid regurgitation
CT Abdomen Pelvis Findings (as per radiologist's
report):
'No acute pathology of the abdomen or pelvis.
Nonobstructing left renal stones. New
Mild pancreatic fatty infiltration. Stable
Tiny pericardial effusion versus pericardial
thickening. Stable
Mild diverticulosis. Stable
Simple left renal cyst. Stable.
Postsurgical change of the spine and sacrum.
Stable'
Diet Low Sodium,Low Residue,Low Fat
Activity As tolerated
Driving Restrictions Not until seen by your Dr
Instructions:
Stand-Alone Forms:
Changes to Home Medications: Yes
Discharge Medications:
DC Medications w/original date entered in [employer]
olmesartan 40 mg tablet 40 mg PO DAILY Blood Pressure 12/01/22
oxycodone 10 mg tablet 10 mg PO Q4H Pain 12/01/22
morphine 15 mg tablet,extended release 15 mg PO BID Pain 12/02/22
Healthy Brain- All Day Focus 1 cap PO DAILY Supplement 04/20/23
Medical Marijuana 3 gummy PO DAILYPRN PRN anxiety 04/20/23
acetaminophen 325 mg tablet (Tylenol) 650 mg PO BIDPRN PRN migraines 04/20/23
cyclobenzaprine 5 mg tablet 5 mg PO HS Muscle Spasms 04/20/23
gabapentin 600 mg tablet 600 mg PO QID Neurological Condition 04/20/23
melatonin 5 mg tablet 5 mg PO HS Sleep 04/20/23
sennosides 8.6 mg-docusate sodium 50 mg tablet (Colace 2-In-1) 2 tab-cap PO HS Constipation 04/20/23
amlodipine 5 mg tablet 5 mg PO HS #30 tabs 04/23/23
pantoprazole 40 mg tablet,delayed release (Protonix) 40 mg PO Q12H #60 tabs 04/23/23
Home Medication Changes
Amlodipine and Protonix are new medications
Pending Results: No
Total time spent discharging patient (in min): 36
--- NOTE | 2023-04-23 16:39 | CM ---
Chart reviewed
Pt for d/c
Plan - d/c to home-no needs
[2023-04-23] MEDS: LEVAQUIN 100 IV (17:30)
[2023-04-23] MEDS: FLUZONE QUAD 2023-2024 SYRINGE 0.5 ML IM (17:31)
--- NOTE | 2023-04-26 10:20 | W.DCSUMMARY ---
Discharge Summary
Discharge Data
Date of Admission: 04/20/23
Date of Discharge: 04/23/23
Total time spent discharging patient (in min): 36
-
Pending Results: No
Hospital Course
58 y/o male with past medical history of traumatic brain injury in 2008 (associated with chronic dizziness), hypertension and chronic low back pain, who presented to the emergency department complaining of diarrhea x 3 days. Patient denied any blood
in his stools and has not tried anything to improve his symptoms. He also reported nausea x2 days and frequent vomiting x approximately 1 day. Patient was started on Levaquin and Flagyl and stool studies were ordered - stool studies later showed
white cells were negative, norovirus was negative, and C. difficile antigen was positive but toxin was negative. Gastroenterology was consulted and noted that the cause of patient's intermittent nausea and vomiting was likely secondary to component
of opioid-induced gastroparesis with chronic narcotic use versus effects from marijuana cyclical vomiting with daily marijuana use versus less likely a viral gastroenteritis versus other, and his CT imaging showed no acute findings (however please
see the separate CT radiologist's report). Patient was placed on a clear liquid diet.
Patient reported some chest thumping sensation, and therefore echocardiogram, electrocardiogram and troponins were done. It was discussed at length that patient would need to reduce his stress and continue to follow-up with psych outpatient. It was
also strongly recommended to the patient to limit narcotic use, and cyclical vomiting related to marijuana was explained to the patient as well.
Patient was advised to continue on a low residue and low fat diet as it was thought that patient may have a competent of gastroparesis related to opiate use. Patient was also advised to continue Protonix 40 mg twice a day in order to prevent any
esophagitis related to intermittent nausea and vomiting episodes.
Discharge Plan
-
Patient Disposition: Home (Routine Discharge)
Discharge Diagnosis/Procedures: Intractable Nausea/Vomiting/Diarrhea suspected secondary to Opioid-Induced gastroparesis with chronic narcotic use versus effects from cyclical vomiting with daily marijuana use versus less likely a viral
gastroenteritis versus stress vs other
Chest Thumping Sensation - resolved
Chronic Dizziness Associated with History of Traumatic Brain Injury
Chronic Back Pain with Chronic Opioid Dependence
Essential Hypertension
Mild concentric left ventricular hypertrophy
Mild mitral regurgitation
Mild tricuspid regurgitation
CT Abdomen Pelvis Findings (as per radiologist's report):
'No acute pathology of the abdomen or pelvis.
Nonobstructing left renal stones. New
Mild pancreatic fatty infiltration. Stable
Tiny pericardial effusion versus pericardial thickening. Stable
Mild diverticulosis. Stable
Simple left renal cyst. Stable.
Postsurgical change of the spine and sacrum. Stable'
Condition: Fair
Diet: Low Fat, Low Sodium and Low Residue
Activity: As tolerated
Driving Restrictions: Not until seen by your Dr
Activity Restrictions/Additional Instructions:
As was discussed by gastroenterology team, to help your symptoms, stress reduction is important, as well as if possible limiting narcotic use and cyclical vomiting related to marijuana
Continue laxatives for constipation
Referrals:
Brody Fernández DO [Family Provider] - in two to three days
Paola Griffin MD [Active] - (GI follow up for recurrent vomiting issue. 6-8 weeks )
Prescriptions:
New
amlodipine 5 mg Tablet
5 mg PO HS Qty: 30 1RF
pantoprazole [Protonix] 40 mg tablet,delayed release (DR/EC)
40 mg PO Q12H Qty: 60 1RF
Continued
olmesartan 40 mg Tablet
40 mg PO DAILY
oxycodone 10 mg Tablet
10 mg PO Q4H
morphine 15 mg tablet extended release
15 mg PO BID
cyclobenzaprine 5 mg Tablet
5 mg PO HS
acetaminophen [Tylenol] 325 mg Tablet
650 mg PO BIDPRN PRN (Reason: migraines)
gabapentin 600 mg Tablet
600 mg PO QID
sennosides-docusate sodium [Colace 2-In-1] 8.6-50 mg Tablet
2 tab-cap PO HS
melatonin 5 mg Tablet
5 mg PO HS
Healthy Brain- All Day Focus
1 cap PO DAILY
Medical Marijuana
3 gummy PO DAILYPRN PRN (Reason: anxiety)
No Action
meclizine 25 mg tablet
25 mg PO TID PRN (Reason: dizziness) Qty: 20 0RF
Discharge Orders:
Discharge Patient (As Directed); Ordered 04/23/23
Ordered By: Sameer aMrks
Discharge Date and Time
Discharge Date/Time: 04/23/23 19:30
== END 2023-04-23 19:30 | disposition home or self-care (01) | DRG 392 ==
LOC: 3 WEST ACU 16:24
PROVIDERS: Physician Assistant; Physician Assistant Medical; ADMITTING PHYSICIAN Internal Medicine; ATTENDING PHYSICIAN Hospitalist; CONSULT PHYSICIAN Internal Medicine Gastroenterology; EMERGENCY PHYSICIAN Emergency Medicine; FAMILY PHYSICIAN Family Medicine Sports Medicine
DX: A09 Infectious gastroenteritis and colitis, unspecified (principal); F11.20 Opioid dependence, uncomplicated; G89.29 Other chronic pain; N20.0 Calculus of kidney; F41.9 Anxiety disorder, unspecified; F12.90 Cannabis use, unspecified, uncomplicated; I11.9 Hypertensive heart disease without heart failure; J45.998 Other asthma; Z87.820 Personal history of traumatic brain injury; T40.2X5A Adverse effect of other opioids, initial encounter; K59.03 Drug induced constipation
CPT/HCPCS: 71046; 74176; 80048; 80053; 83690; 83735; 84100; 84484; 85025; 85027; 87045; 87046; 87324; 87427; 87449; 87798; 89055; 90686; 93005; 93306; 96361; 96374; 96375; 96376; 99285; G0008

== ENCOUNTER 2023-04-24 17:49 | Emergency (ER) | payer BC, SELFPAY ==
[2023-04-24] VITALS (11 sets, daily range): BP systolic 89–122; BP diastolic 57–78; PULSE 93–96; BMI 33.3
[2023-04-24 18:16] LABS: % Basophils 0.4 % (0-2); % Eosinophils 1.1 % (0-6); % Immature Granulocytes 0.2 % (0-0.5); % Lymphocytes 11.7 % (20.5-51.1); % Neutrophils 81.6 % (42.2-75.2); Absolute Eosinophils 0.1 10^3/uL (0-0.7); Absolute Monocytes 0.4 10^3/uL (0.1-0.6); Absolute Neutrophils 6.6 10^3/uL (1.4-6.5); Hematocrit 39.7 % (39.0-52.0); Hemoglobin 13.9 g/dL (13.0-18.0); Mean Corpuscular Hgb 31.6 pg (27.0-31.0); Mean Corpuscular Volume 90.2 fL (80.0-94.0); Mean Platelet Volume 10.1 fL (7.4-10.4); Nucleated Red Blood Cells % 0 % (-); Platelet Count 284 10^3/uL (130-400); Red Cell Dist. Width 12.2 % (11.5-14.5); White Blood Cell Count 8.1 10^3/uL (4.8-10.8)
[2023-04-24 18:27] LABS: ALT (SGPT) 27 U/L (0-50); AST (SGOT) 29 U/L (17-59); Albumin 4.2 g/dl (3.5-5.0); Alkaline Phosphatase 54 U/L (38-126); Blood Urea Nitrogen 16 mg/dl (9-20); Calcium 9.3 mg/dl (8.4-10.2); Carbon Dioxide 29 mmol/L (22-30); Chloride 104 mmol/L (98-107); Estimated Creatinine Clearance 101 ml/min; Glucose 120 mg/dl (70-99); Lipase 28 U/L (23-300); Potassium 4.1 mmol/L (3.5-5.1); Sodium 137 mmol/L (135-145); Total Bilirubin 0.9 mg/dl (0.2-1.3); Total Protein 6.5 g/dl (6.3-8.2); eGFR > 60.00
[2023-04-24] MEDS: NSS 1000 IV (19:45)
--- NOTE | 2023-04-24 21:19 | EDRN ---
Pt requesting IV dilaudid and oral pain medications, pt states 'I was receiving IV dilaudid every 3 hours and my oral pain medications yesterday when I was admitted in the hospital.' Dr. Pizarro made aware.
[2023-04-24] MEDS: ROXICODONE 10 MG PO (21:49)
--- NOTE | 2023-04-24 23:04 | ED.GENMED ---
History of Present Illness
General
Chief Complaint: Fainting/Passed Out
Source: patient and family
Time Seen by Provider: 04/24/23 19:00
Travel History
Have you had any contact with someone who has COVID-19?: No
Do you have any symptoms of coronavirus? Fever > 100 degrees, chills, cough, shortness of breath, sore throat, loss of taste or smell, muscle aches, or headache?: No
History of Present Illness
History of Present Illness:
58-year-old male who was recently discharged yesterday from the hospital. The patient has a history of traumatic brain injury and chronic vestibular problems. Patient was hospitalized with persistent vomiting and nausea. Patient states today was
the first that he was home but had a very busy day and a lot of stress. He had to go to a doctor's appointment early and was running around with errands. He was under good amount of stress. He took his pain medications in the morning. Around
lunch, his significant other was making food when she came back and she had noticed he vomited and seemed unresponsive. She wanted to get something came back and saw seizure-like activity. She states however it was not '' tonic-clonic'. Patient
was noted to be hypotensive as she took his blood pressure but also EMS found him to be hypotensive. On arrival to the emergency department he was a bit drowsy but on my evaluation he feels better. He does report that he had been dizzy all day.
The dizziness does seem to come and go. No chest pain. No shortness of breath. Patient does continue to feel dizzy. He states he was somewhat hypertensive while hospitalized so it surprises him to be hypotensive
Past History
Past History
ED Past Medical History: Asthma, HTN, Other (Head injury with Vestibular problem), Other (Chronic low back pain, narcotic dependent) and Other (Kidney stones); Negative Hypercholesterolemia or NIDDM
ED Past Surgical History: Orthopedic (Left rotator cuff, Back surgery X 3) and Other (Stent, Left Orthroscopy, )
Social History
Tobacco: Non-smoker
Alcohol: None
Personal:
Living: with family
Employment: Disabled
Family History
Family History: Other (Noncontributory)
Phy Exam
Physical Exam
Physical Exam:
CONSTITUTIONAL Patient alert and oriented to person, place and time. Well-appearing. Vital signs reviewed.
HEAD atraumatic, normocephalic.
EYES eyelids normal to inspection, Pupils equally round and reactive to light, Extraocular muscles intact, Conjunctiva normal, Sclera normal.
NECK normal range of motion, Trachea midline, no jugular venous distention.
RESPIRATORY CHEST No respiratory distress noted, Chest expansion equal, Bilateral breath sounds clear.
CARDIOVASCULAR regular rate and rhythm, Heart sounds normal.
ABDOMEN abdomen nontender, Bowel sounds normal. No distention.
BACK normal inspection, no obvious deformities
UPPER EXTREMITY range of motion normal, Motor strength normal, no cyanosis, no edema.
LOWER EXTREMITY range of motion normal, Motor strength normal, no cyanosis, no edema.
NEURO Speech normal, No focal motor deficits, [place] coma scale 15, Memory normal, Cranial Nerves intact to screening exam.
SKIN skin warm, dry, and normal in color.
PSYCHIATRIC patient oriented to person place and time, Normal affect.
Course
Orders/Labs/Results
Orders:
Orders
04/24/23 17:50
EKG [Electrocardiogram (*1)] Urgent
Reason for Study: Syncope
EKG- Treatment ONCE
04/24/23 18:02
CBC/With Diff [Complete Blood Count/With Diff] Urgent
CMP [Comprehensive Metabolic Panel] Urgent
Lipase Urgent
04/24/23 19:33
Orthostatic VS- Treatment ONCE
04/24/23 19:45
0.9% Sodium Chloride 1000 ml [Nss] 1,000 ml IV BOLUS
04/24/23 21:37
Oxycodone [Roxicodone] 10 mg PO NOW STA
04/24/23 21:38
CT Head W/o Iv Contrast Urgent
Comment:
Reason For Exam: dizziness, ? syncope vs seizure
Abnormal Lab Results
04/24/23
18:02
RBC 4.40 L 10^6/uL
(4.70-6.10)
MCH 31.6 H pg
(27.0-31.0)
Absolute Neuts (auto) 6.6 H 10^3/uL
(1.4-6.5)
Absolute Lymphs (auto) 1.0 L 10^3/uL
(1.2-3.4)
Neutrophils % 81.6 H %
(42.2-75.2)
Lymphocytes % 11.7 L %
(20.5-51.1)
Glucose 120 H mg/dl
(70-99)
04/24/23 18:02
04/24/23 18:02
Vital Signs
Initial and Last Documented VS:
Initial Vital Signs
Temp Pulse Resp BP Pulse Ox
98.0 F 85 18 92/57 96
04/24/23 17:51 04/24/23 17:51 04/24/23 17:51 04/24/23 17:51 04/24/23 17:51
Last Documented Vital Signs
Temp Pulse Resp BP Pulse Ox
98.0 F 87 25 104/66 97
04/24/23 17:51 04/24/23 23:15 04/24/23 23:15 04/24/23 23:00 04/24/23 22:30
MDM/Problems Addressed
MDM/Problems Addressed:
Chronic dizziness, vomiting, hypotension, suspect vasovagal event
*Radiology
Radiology exam reviewed: preliminary read by ED provider (No obvious intracranial hemorrhage) and radiology read reviewed
*Pulse Oximetry
Patient hypoxic: no
*EKG
Interpreted by ED Provider?: Yes
Interpretation: normal
Rate: normal
Rhythm: sinus
[place]: normal axis
QRS Pattern: normal QRS
Ischemia: no ischemia
*Poultry Trimmer Interpretation
Rate: normal
Interpretation: normal
Rhythm: sinus
*Critical Care Note
Total Time (30-74mins, 75-104mins- exclusive of procedures): Not Applicable
Data Reviewed
Review of Other/Old Records Reveals: Discharge Summary (Recent discharge summary reviewed)
Source: patient and spouse
Prescriptions/Medications Considered But Not Given:
Consider meclizine but patient feels a bit better after IV fluid
Patient Management
Escalation/DeEscalation of care consider admission/obs:
Patient appears well. Blood pressure now been stable. Question whether he had a vasovagal event related to vomiting. Patient does have a long history of vestibular issues and chronic dizziness. Patient states he feels well enough to go home.
His neurologic assessment is normal. CT grossly unremarkable for acute findings. Labs okay. No clinical suspicion for pulmonary embolism or cardiac source. Recommended outpatient follow-up. Do not suspect primary seizures
ED Attending Note
-
Portions of this chart may have been created with voice recognition software.� Occasional wrong word or��sound alike� substitutions may have occurred due to the inherent limitations of voice recognition software.
Discharge Plan
Departure
Patient Disposition: Home (Routine Discharge)
Date of Disposition: 04/24/23
Time of Disposition: 23:04
Patient with high blood pressure during this ER visit?: No
Discharge Problem:
Syncope, Vomiting, acute on chronic dizziness
Instructions: Syncope (Fainting) (DC), Dizziness, Nonvertigo, (DC)
Prescriptions:
New
meclizine 25 mg tablet
25 mg PO TID PRN (Reason: dizziness) Qty: 20 0RF
No Action
olmesartan 40 mg Tablet
40 mg PO DAILY
oxycodone 10 mg Tablet
10 mg PO Q4H
morphine 15 mg tablet extended release
15 mg PO BID
cyclobenzaprine 5 mg Tablet
5 mg PO HS
acetaminophen [Tylenol] 325 mg Tablet
650 mg PO BIDPRN PRN (Reason: migraines)
gabapentin 600 mg Tablet
600 mg PO QID
sennosides-docusate sodium [Colace 2-In-1] 8.6-50 mg Tablet
2 tab-cap PO HS
melatonin 5 mg Tablet
5 mg PO HS
Healthy Brain- All Day Focus
1 cap PO DAILY
Medical Marijuana
3 gummy PO DAILYPRN PRN (Reason: anxiety)
amlodipine 5 mg Tablet
5 mg PO HS Qty: 30 1RF
pantoprazole [Protonix] 40 mg tablet,delayed release (DR/EC)
40 mg PO Q12H Qty: 60 1RF
Referrals:
Brody Fernández DO [Family Provider] -
Activity Restrictions/Additional Instructions:
Please continue to monitor your blood pressure at home and keep a log. Please follow-up with your doctor in the next 3 days. Return immediately for low blood pressure, passing out episode, seizure-like episode, chest pain, shortness of breath,
palpitations, intractable vomiting or any other concerns. Please hold your blood pressure medications for now until you follow-up with your doctor.
Interventions
Interventions:
*Risk Screen - Suicide Last Done: 04/24/23 17:51
*General Assessment Last Done: 04/24/23 17:51
*Neglect/Abuse Screening Last Done: 04/24/23 17:51
ED- Fall Risk Assessment Last Done: 04/24/23 17:55
*ED COVID-19 Vaccine History Last Done: 04/24/23 17:51
*Nursing Disposition Last Done: 04/24/23 23:40
ED- Cardiac Assessment Last Done: 04/24/23 17:55
ED- Neurological Assessment Last Done: 04/24/23 17:55
Discharge Date and Time
Discharge Date/Time: 04/24/23 23:44
== END 2023-04-24 23:44 | disposition home or self-care (01) ==
LOC: EMR 17:49
PROVIDERS: Emergency Medicine; EMERGENCY PHYSICIAN Emergency Medicine; FAMILY PHYSICIAN Family Medicine Sports Medicine
DX: R55 Syncope and collapse (principal); I10 Essential (primary) hypertension; M54.50 Low back pain, unspecified; R56.9 Unspecified convulsions; J45.909 Unspecified asthma, uncomplicated; F11.21 Opioid dependence, in remission; G89.29 Other chronic pain; Z87.820 Personal history of traumatic brain injury; Z87.442 Personal history of urinary calculi
CPT/HCPCS: 99284; 70450; 80053; 83690; 85025; 93005

== ENCOUNTER → 2023-07-29 07:44 | Outpatient (REF) | payer BC, SELFPAY | LOC: RAD 07:44 | PROVIDERS: ATTENDING PHYSICIAN Internal Medicine Gastroenterology; FAMILY PHYSICIAN Family Medicine Sports Medicine | DX: K59.09 Other constipation (principal) | CPT/HCPCS: 74018 ==

== ENCOUNTER → 2023-08-15 06:28 | Day surgery (SDC) | payer BC, SELFPAY | LOC: GI 06:28 | PROVIDERS: ATTENDING PHYSICIAN Internal Medicine Gastroenterology | DX: K57.30 Diverticulosis of large intestine without perforation or abscess without bleeding (principal); Q43.8 Other specified congenital malformations of intestine; K56.2 Volvulus; D12.8 Benign neoplasm of rectum; K29.50 Unspecified chronic gastritis without bleeding; K22.89 Other specified disease of esophagus; K44.9 Diaphragmatic hernia without obstruction or gangrene; R11.2 Nausea with vomiting, unspecified; Z86.010 Personal history of colon polyps | CPT/HCPCS: 45385; 43239; 88305; 88342 ==

== ENCOUNTER → 2023-11-15 13:23 | Outpatient (REF) | payer BC, SELFPAY | LOC: PAVMRI 13:23 | PROVIDERS: ATTENDING PHYSICIAN Nurse Practitioner; FAMILY PHYSICIAN Family Medicine Sports Medicine | DX: M54.16 Radiculopathy, lumbar region (principal) | CPT/HCPCS: 72158; A9575 ==

== ENCOUNTER → 2023-12-02 10:49 | Outpatient (REF) | payer BC, SELFPAY | LOC: HWRAD 10:49 | PROVIDERS: ATTENDING PHYSICIAN Neurological Surgery; FAMILY PHYSICIAN Family Medicine Sports Medicine | DX: M54.16 Radiculopathy, lumbar region (principal); M46.1 Sacroiliitis, not elsewhere classified | CPT/HCPCS: 72100; 72131; 72192 ==

== ENCOUNTER 2024-01-02 04:27 | Emergency (ER) | payer BC, SELFPAY ==
[2024-01-02 04:30] VITALS: BP 172/90
[2024-01-02 05:10] VITALS: BP 119/105
[2024-01-02 05:38] LABS: % Basophils 0.2 % (0-2); % Eosinophils 0.7 % (0-6); % Immature Granulocytes 0.5 % (0-0.5); % Lymphocytes 20.4 % (20.5-51.1); % Monocytes 4.7 % (1.7-9.3); % Neutrophils 73.5 % (42.2-75.2); Absolute Eosinophils 0.1 10^3/uL (0-0.7); Absolute Immature Granulocytes 0.1 10^3/uL (0-0.05); Absolute Lymphocytes 2.6 10^3/uL (1.2-3.4); Absolute Monocytes 0.6 10^3/uL (0.1-0.6); Absolute Neutrophils 9.2 10^3/uL (1.4-6.5); Hematocrit 40.3 % (39.0-52.0); Hemoglobin 14.3 g/dL (13.0-18.0); Mean Corp Hgb Conc. 35.5 g/dL (33.0-37.0); Mean Corpuscular Hgb 31.8 pg (27.0-31.0); Mean Corpuscular Volume 89.8 fL (80.0-94.0); Mean Platelet Volume 9.8 fL (7.4-10.4); Nucleated Red Blood Cells % 0 % (-); Platelet Count 277 10^3/uL (130-400); Red Blood Cell Count 4.49 10^6/uL (4.70-6.10); Red Cell Dist. Width 11.7 % (11.5-14.5); White Blood Cell Count 12.6 10^3/uL (4.8-10.8)
[2024-01-02 05:56] LABS: ALT (SGPT) 22 U/L (0-50); AST (SGOT) 18 U/L (17-59); Albumin 4.2 g/dl (3.5-5.0); Alkaline Phosphatase 47 U/L (38-126); Blood Urea Nitrogen 26 mg/dl (9-20); Calcium 10.4 mg/dl (8.4-10.2); Carbon Dioxide 21 mmol/L (22-30); Chloride 107 mmol/L (98-107); Glucose 102 mg/dl (70-99); Potassium 4.7 mmol/L (3.5-5.1); Sodium 139 mmol/L (135-145); Total Bilirubin 0.4 mg/dl (0.2-1.3); Total Protein 6.5 g/dl (6.3-8.2); eGFR > 60.00
[2024-01-02 06:00] VITALS: BP 132/85
--- NOTE | 2024-01-02 06:26 | ED.GENMED ---
History of Present Illness
General
Chief Complaint: Back Pain
Source: patient and spouse
Exam Limitations: none
Time Seen by Provider: 01/02/24 06:09
History of Present Illness
History of Present Illness:
This is a 58-year-old male who has had persistent pain for close to a year. He states this pain has been worse over the last 2 weeks. Pain is unchanged but just persistent. He states it is affecting his quality of life. He states he has been
walking with a cane or walker for some time now. He has seen several different doctors including [facility] (Dr. Spring and Dr. Mathis), his pain doctor and recently saw At [facility]. The patient states that he does
not seem to have an answer for plan. He was told by 2 different doctors that he had a failed SI joint fusion. The patient states that he does have pain when he tries to walk it is clearly worse when he opens his hips. He has pain in the right
groin down the right leg and feels like something is squeezing his right ankle but at times it is in his left ankle. The pain does come down the front. It also radiates to the right groin at the right but. No fevers. No incontinence. The
patient had a multitude of imaging studies including MRI and pelvis CT. He is on gabapentin and has had 'maybe up to 20' injections of his low back. he states that nothing has helped.
Past History
Past History
ED Past Medical History: Asthma, HTN, Other (Head injury with Vestibular problem), Other (Chronic low back pain, narcotic dependent) and Other (Kidney stones); Negative Hypercholesterolemia or NIDDM
ED Past Surgical History: Orthopedic (Left rotator cuff, Back surgery X 3) and Other (Stent, Left Orthroscopy, )
Social History
Tobacco: Non-smoker
Alcohol: None
Personal:
Living: with family
Employment: Disabled
Family History
Family History: Other (Noncontributory)
Phy Exam
Physical Exam
Physical Exam:
CONSTITUTIONAL Vital signs reviewed, Patient alert and oriented to person, place and time. Well-appearing
HEAD atraumatic, normocephalic.
EYES eyelids normal to inspection, Extraocular muscles intact, Conjunctiva normal, Sclera normal.
NECK normal range of motion, Trachea midline, no jugular venous distention.
RESP no respiratory distress
BACK No obvious deformities
UPPER EXTREMITY Gross Range of motion normal, gross motor strength normal
LOWER EXTREMITY Gross range of motion normal, Gross motor strength normal. Normal dorsalis pedis pulse bilaterally. Normal posterior tibial pulses bilaterally. Feet are warm and well-perfused. He is moving his legs bilaterally and pain. He has
normal flexion. He has normal internal and external rotation of the hips. Groin: Normal femoral pulse palpated. He does report tenderness when palpating this area. There is no noted hernia.
NEURO Speech normal, No focal motor deficits include, [place] coma scale 15, Memory normal, Cranial Nerves intact to screening exam.
SKIN Skin warm, dry, and normal in color.
PSYCHIATRIC Patient oriented to person place and time, Normal affect.
Course
Orders/Labs/Results
Orders:
Orders
01/02/24 05:21
CMP [Comprehensive Metabolic Panel] Urgent
Complete Blood Count/With Diff Urgent
01/02/24 06:23
HYDROmorphone [Dilaudid] 1 mg IV NOW STA
01/02/24 06:26
Ondansetron Injectable [Zofran] 4 mg IV NOW STA
01/02/24 07:02
Urinalysis Reflex To Culture Urgent
01/02/24 07:30
Dexamethasone Sod Phosphate [Decadron] 10 mg IV NOW STA
01/02/24 07:31
Ketorolac [Toradol] 30 mg IV NOW STA
Abnormal Lab Results
01/02/24
05:21
WBC 12.6 H 10^3/uL
(4.8-10.8)
RBC 4.49 L 10^6/uL
(4.70-6.10)
MCH 31.8 H pg
(27.0-31.0)
Abs Immat Gran (auto) 0.1 H 10^3/uL
(0-0.05)
Absolute Neuts (auto) 9.2 H 10^3/uL
(1.4-6.5)
Lymphocytes % 20.4 L %
(20.5-51.1)
Carbon Dioxide 21 L mmol/L
(22-30)
BUN 26 H mg/dl
(9-20)
Glucose 102 H mg/dl
(70-99)
Calcium 10.4 H mg/dl
(8.4-10.2)
01/02/24 05:21
01/02/24 05:21
Vital Signs
Initial and Last Documented VS:
Initial Vital Signs
Temp Pulse Resp BP Pulse Ox
97.2 F 78 28 172/90 96
01/02/24 04:30 01/02/24 04:30 01/02/24 04:30 01/02/24 04:30 01/02/24 04:30
Last Documented Vital Signs
Temp Pulse Resp BP Pulse Ox
97.2 F 69 13 132/85 94
01/02/24 04:30 01/02/24 06:00 01/02/24 06:00 01/02/24 06:00 01/02/24 05:45
MDM/Problems Addressed
Differential Diagnosis Includes:
Femoral hernia, lumbar radiculopathy, arterial occlusion, failed SI fusion, septic joint
MDM/Problems Addressed:
Radiculopathy
*Pulse Oximetry
Patient hypoxic: no
*Critical Care Note
Total Time (30-74mins, 75-104mins- exclusive of procedures): Not Applicable
Data Reviewed
Source: patient and spouse
Further Testing Considered But Not Given:
Considered imaging but patient has had outpatient MRI and CT scans
Patient Management
Escalation/DeEscalation of care consider admission/obs:
58-year-old male who was seen multitude of specialist and has had MRI, CT and imaging. Pain distribution is sort of odd as it does seem to travel between right and left leg and is anterior and posterior. Pain has been ongoing for about a year. At
this point I do not see any evidence of cauda equina syndrome. Will trial course of steroids. Patient will follow-up as an outpatient. Already is plugged into pain management.
ED Attending Note
-
Portions of this chart may have been created with voice recognition software.� Occasional wrong word or��sound alike� substitutions may have occurred due to the inherent limitations of voice recognition software.
Discharge Plan
Departure
Patient Disposition: Home (Routine Discharge)
Date of Disposition: 01/02/24
Time of Disposition: 07:32
Patient with high blood pressure during this ER visit?: No
Discharge Problem:
Radiculopathy
Instructions: Radiculopathy (DC)
Prescriptions:
New
prednisone 10 mg Tablet
See Rx Instructions .ROUTE .COMPLEX Qty: 45 0RF
Rx Instructions:
Take By Mouth:
50 mg daily x3 days, 40 mg daily x3 days,
30 mg daily x3 days, 20 mg daily x3 days,
10 mg daily x3 days
No Action
olmesartan 40 mg Tablet
40 mg PO DAILY
oxycodone 10 mg Tablet
10 mg PO Q4H
morphine 15 mg tablet extended release
15 mg PO BID
cyclobenzaprine 5 mg Tablet
5 mg PO HS
acetaminophen [Tylenol] 325 mg Tablet
650 mg PO BIDPRN PRN (Reason: migraines)
gabapentin 600 mg Tablet
600 mg PO QID
sennosides-docusate sodium [Colace 2-In-1] 8.6-50 mg Tablet
2 tab-cap PO HS
melatonin 5 mg Tablet
5 mg PO HS
Healthy Brain- All Day Focus
1 cap PO DAILY
Medical Marijuana
3 gummy PO DAILYPRN PRN (Reason: anxiety)
amlodipine 5 mg Tablet
5 mg PO HS Qty: 30 1RF
pantoprazole [Protonix] 40 mg tablet,delayed release (DR/EC)
40 mg PO Q12H Qty: 60 1RF
meclizine 25 mg tablet
25 mg PO TID PRN (Reason: dizziness) Qty: 20 0RF
Referrals:
Brody Fernández DO [Family Provider] -
Arnulfo Mccain MD [Active] -
Activity Restrictions/Additional Instructions:
Please see your doctor for follow-up as discussed. Return immediately for fevers, motor weakness, bladder or bowel incontinence, or any other concerns.
Interventions
Interventions:
*Risk Screen - Suicide Last Done: 01/02/24 04:30
*General Assessment Last Done: 01/02/24 05:16
*Neglect/Abuse Screening Last Done: 01/02/24 04:30
ED- Fall Risk Assessment Last Done: 01/02/24 05:16
*ED COVID-19 Vaccine History Last Done: 01/02/24 05:16
ED-Musculoskeletal Assessment Last Done: 01/02/24 05:16
Discharge Date and Time
Print Language: UKRAINIAN
[2024-01-02] MEDS: ZOFRAN 4 MG IV (06:29)
[2024-01-02] MEDS: DILAUDID 1 MG IV (06:38)
[2024-01-02 07:00] VITALS: BP 116/83
[2024-01-02] MEDS: DECADRON 10 MG IV (07:50)
[2024-01-02] MEDS: TORADOL 30 MG IV (07:50)
[2024-01-02 07:53] LABS: Urine Albumin Negative (Neg - Trace); Urine Bilirubin Negative (Negative); Urine Character Clear (Clear); Urine Color Yellow; Urine Glucose Negative (Negative); Urine Ketone Negative (Negative); Urine Leukocyte Negative (Negative); Urine Nitrite Negative (Negative); Urine Occult Blood Negative (Negative); Urine Specific Gravity 1.015 (<1.030); Urine Urobilinogen Negative (Neg - 1+)
== END 2024-01-02 08:02 | disposition home or self-care (01) ==
LOC: EMR 04:27
PROVIDERS: Emergency Medicine; EMERGENCY PHYSICIAN Emergency Medicine; FAMILY PHYSICIAN Family Medicine Sports Medicine
DX: M54.10 Radiculopathy, site unspecified (principal)
CPT/HCPCS: 99284; 96374; 96375 ×3; 80053; 81003; 85025

== ENCOUNTER → 2024-03-24 13:35 | Outpatient (REF) | payer BC, SELFPAY | LOC: PAVMRI 13:35 | PROVIDERS: ATTENDING PHYSICIAN Neurological Surgery; FAMILY PHYSICIAN Family Medicine Sports Medicine | DX: M54.12 Radiculopathy, cervical region (principal); M62.81 Muscle weakness (generalized); M47.816 Spondylosis without myelopathy or radiculopathy, lumbar region; Z98.890 Other specified postprocedural states | CPT/HCPCS: 72050; 72100; 72141 ==

== ENCOUNTER → 2024-06-04 09:41 | Outpatient (REF) | payer MEDICARE, BC, SELFPAY | LOC: PAVMRI 09:41 | PROVIDERS: ATTENDING PHYSICIAN Student in an Organized Health Care Education/Training Program; FAMILY PHYSICIAN Family Medicine Sports Medicine | DX: R90.89 Other abnormal findings on diagnostic imaging of central nervous system (principal) | CPT/HCPCS: 70553; 76014; 76015; A9575 ==

== ENCOUNTER → 2024-10-13 11:58 | Outpatient (REF) | payer MEDICARE, BC, SELFPAY | LOC: PAVMRI 11:58 | PROVIDERS: ATTENDING PHYSICIAN Neurological Surgery; FAMILY PHYSICIAN Family Medicine Sports Medicine | DX: M54.2 Cervicalgia (principal) | CPT/HCPCS: 72141; 76014; 76015 ==

== ENCOUNTER → 2024-10-23 14:37 | Outpatient (REF) | payer MEDICARE, BC, SELFPAY | LOC: PAVMRI 14:37 | PROVIDERS: ATTENDING PHYSICIAN Family Medicine Sports Medicine | DX: S73.191A Other sprain of right hip, initial encounter (principal) | CPT/HCPCS: 73721 ==

== ENCOUNTER → 2024-11-16 13:09 | Outpatient (REF) | payer MEDICARE, BC, SELFPAY | LOC: RAD 13:09 | PROVIDERS: ATTENDING PHYSICIAN Neurological Surgery; FAMILY PHYSICIAN Family Medicine Sports Medicine | DX: R51.9 Headache, unspecified (principal); M24.20 Disorder of ligament, unspecified site; M47.812 Spondylosis without myelopathy or radiculopathy, cervical region; M54.12 Radiculopathy, cervical region; M54.2 Cervicalgia; G89.4 Chronic pain syndrome; Z96.89 Presence of other specified functional implants; M53.3 Sacrococcygeal disorders, not elsewhere classified; Z98.1 Arthrodesis status; S73.191S Other sprain of right hip, sequela; M47.816 Spondylosis without myelopathy or radiculopathy, lumbar region; Z79.890 Hormone replacement therapy | CPT/HCPCS: 70496; 70498; Q9967 ==

== ENCOUNTER → 2025-01-28 10:32 | Outpatient (REF) | payer MEDICARE, BC, SELFPAY ==
[2025-01-28 12:35] LABS: Blood Urea Nitrogen 20 mg/dl (9-20); Calcium 9.8 mg/dl (8.4-10.2); Carbon Dioxide 26 mmol/L (22-30); Chloride 103 mmol/L (98-107); Glucose 101 mg/dl (70-99); Potassium 4.6 mmol/L (3.5-5.1); Sodium 135 mmol/L (135-145); eGFR > 60.00
== END ==
LOC: REG 10:32
PROVIDERS: ATTENDING PHYSICIAN Neurological Surgery; FAMILY PHYSICIAN Family Medicine Sports Medicine
DX: M47.816 Spondylosis without myelopathy or radiculopathy, lumbar region (principal); Z96.89 Presence of other specified functional implants; M54.42 Lumbago with sciatica, left side; M54.41 Lumbago with sciatica, right side; G89.29 Other chronic pain; T85.192A Other mechanical complication of implanted electronic neurostimulator of spinal cord electrode (lead), initial encounter; M96.1 Postlaminectomy syndrome, not elsewhere classified; R51.9 Headache, unspecified; M24.20 Disorder of ligament, unspecified site; M47.812 Spondylosis without myelopathy or radiculopathy, cervical region; M54.12 Radiculopathy, cervical region; G89.4 Chronic pain syndrome; M54.2 Cervicalgia; M53.3 Sacrococcygeal disorders, not elsewhere classified; Z98.1 Arthrodesis status; M96.0 Pseudarthrosis after fusion or arthrodesis; Z98.890 Other specified postprocedural states
CPT/HCPCS: 36415; 80048